=== PATIENT | female | born 1990 | race Caucasian/White ===

== ENCOUNTER 2023-04-20 13:31 | Inpatient (IN) | payer BC ==
[2023-04-20] MEDS ORDERED: TERBUTALINE 1 MG/ML VIAL SQ PRN (15:29)
[2023-04-20] MEDS ORDERED: TRANEXAMIC ACID IN NACL,ISO-OS 1,000 MG in EMPTY BAG 1 BAG IV PRN (15:29)
[2023-04-20] MEDS ORDERED: AMPICILLIN 2,000 MG in SODIUM CHLORIDE 0.9% 100 ML IVPB STA (15:29)
[2023-04-20] MEDS ORDERED: OXYTOCIN 10 UNIT/ML 1 ML VIAL IM PRN (15:29)
[2023-04-20] MEDS ORDERED: miSOPROStoL 200 MCG TAB PO PRN (15:29)
[2023-04-20] MEDS ORDERED: LIDOCAINE 0.5% (PF) 5 MG/ML (50 ML SDV) SQ PRN (15:29)
[2023-04-20] MEDS ORDERED: METHYLERGONOVINE 0.2 MG/ML 1 ML AMP IM PRN (15:29)
[2023-04-20] MEDS ORDERED: CARBOPROST TROMETHAMINE 250 MCG/ML 1 ML AMP IM PRN (15:29)
[2023-04-20] MEDS ORDERED: OXYTOCIN 30 UNITS/500 ML NS 30 UNIT in SALINE 1 500ML.BAG IV SCH ×2 (15:30→20:30)
[2023-04-20 15:53] LABS: Basophils % (A) 0 %; Eosinophils % (A) 0 %; HGB 13.5 gm/dL (11.4-16.0); Lymphocytes # (A) 1.4 k/uL (1.0-4.8); Lymphocytes % (A) 19 %; MCH 30.3 pg (25.0-35.0); MCHC 33.8 g/dL (31.0-37.0); MCV 89.5 fL (80.0-100.0); Mean Platelet Volume 8.7; Monocytes # (A) 0.3 k/uL (0-1.0); Monocytes % (A) 4 %; Neutrophils # (A) 5.8 k/uL (1.3-7.7); Neutrophils % (A) 75 %; Platelet Count 165 k/uL (150-450); RBC 4.47 m/uL (3.80-5.40); RDW 14.7 % (11.5-15.5); WBC 7.7 k/uL (3.8-10.6)
[2023-04-20] MEDS: LACTATED RINGERS 1,000 ML IV SCH ×2 (15:53→17:08)
[2023-04-20] MEDS ORDERED: ROPIVACAINE 5 MG/ML 20 ML AMPULE ONE (16:46)
[2023-04-20] MEDS ORDERED: fentaNYL (PF) 50 MCG/ML 5 ML AMP ONE (16:46)
[2023-04-20] MEDS ORDERED: SODIUM CHLORIDE 0.9% 100 ML BAG ONE (16:46)
--- NOTE | 2023-04-20 18:32 | P.HPOB ---
History of Present Illness H&P Date: 04/20/23 Chief Complaint: Contractions This patient is a pleasant 32-year-old 3 para 2 female estimated date of confinement 04/23/2023 estimated gestational age 39-4/7 weeks who presented to labor and delivery this afternoon with complaints of contractions. Patient was 5-6 cm in the office on Thursday and was scheduled for induction tomorrow. Patient's cervix is about the same however she is having which she feels is painful contractions. I have given her the option of going home and return in the morning versus proceeding with induction/augmentation at this time. Since she lives in [place] she is requested to proceed with delivery. care is per Dr. Vieira and it appears to be uncomplicated. She has been watched for small for gestational age. She has a history of positive strep with a previous was negative this . Review of Systems Genitourinary: Reports Menstruation: Reports amenorrhea Past Medical History Past Medical History: No Reported History Additional Past Medical History / Comment(s): Patient's had 2 previous vaginal deliveries History of Any Multi-Drug Resistant Organisms: None Reported Past Surgical History: No Surgical Hx Reported Past Anesthesia/Blood Transfusion Reactions: No Reported Reaction Past Psychological History: No Psychological Hx Reported Smoking Status: Never smoker Past Alcohol Use History: None Reported Past Drug Use History: None Reported - Past Family History Father Family Medical History: No Reported History Medications and Allergies Home Medications Medication Instructions Recorded Confirmed Type No Known Home Medications 04/20/23 04/20/23 History Allergies Allergy/AdvReac Type Severity Reaction Status Date / Time No Known Allergies Allergy Verified 04/20/23 14:19 Exam Vital Signs Temp Pulse Resp BP Pulse Ox 04/20/23 18:13 97.0 F L 74 14 125/76 98 04/20/23 15:28 97.0 F L 74 16 125/76 Intake and Output 04/20/23 04/20/23 04/20/23 06:59 14:59 22:59 Other: Weight 83.461 kg 83.461 kg - OBG Physical Exam Abdomen: bowel sounds normal, no diffuse tenderness, no bruit present, no guar ding noted, no hepatomegaly, no splenomegaly, no mass Vulva: both: normal Vagina: normal moisture, no discharge Cervix: no lesion (Cervix 5 cm dilated 50% effaced -2 station), no discharge Uterus: enlarged Results labs show she is A positive, rubella immune, RPR nonreactive, hepatitis B is negative, Glucola was 131 with a normal three-hour gtt. Group B strep was negative ultrasounds have been normal with the exception of small for gestational age. Result Diagrams: 04/20/23 15:40 Assessment and Plan Assessment: This is a pleasant 32-year-old 3 para 2 female 39-4/7 weeks gestation who presents to labor and delivery with complaints of contractions. Patient's had no cervical change, however since she [place] a distance from the hospital she is quite anxious and I offered her the option of just being admitted for observation versus proceeding with delivery. Patient's requesting proceed with delivery at this time. Plan is artificial rupture membranes, augmentation of labor as necessary and prophylactic antibiotics due to history of positive strep with previous . Anticipate vaginal delivery. (1) 39 weeks gestation of Current Visit: Yes Status: Acute Code(s): Z3A.39 - 39 WEEKS GESTATION OF SNOMED Code(s): 77462601 (2) Normal labor Current Visit: Yes Status: Acute Code(s): O80 - ENCOUNTER FOR FULL-TERM UNCOMPLICATED DELIVERY; Z37.9 - OUTCOME OF DELIVERY, UNSPECIFIED SNOMED Code(s): 57638803
[2023-04-20] MEDS ORDERED: AMPICILLIN 1,000 MG in SODIUM CHLORIDE 0.9% 50 ML IVPB SCH (19:30)
[2023-04-20] MEDS ORDERED: diphenhydrAMINE 25 MG CAP PO PRN (20:24)
[2023-04-20] MEDS ORDERED: SIMETHICONE 80 MG CHEWABLE PO PRN (20:24)
[2023-04-20] MEDS ORDERED: ZOLPIDEM 5 MG TAB PO PRN (20:24)
[2023-04-20] MEDS ORDERED: LANOLIN CREAM 5 GM TUBE TOPICAL PRN (20:24)
[2023-04-20] MEDS ORDERED: ACETAMINOPHEN TAB 325 MG TAB PO PRN (20:24)
[2023-04-20] MEDS ORDERED: HYDROCORTISONE 2.5% RECTAL CREAM 30 GM TUBE RECTAL PRN (20:24)
[2023-04-20] MEDS ORDERED: diphenhydrAMINE 50 MG/ML 1 ML VIAL IVP PRN (20:24)
[2023-04-20] MEDS ORDERED: bisacodyL 10 MG SUPP RECTAL PRN (20:24)
[2023-04-20] MEDS ORDERED: BENZOCAINE/MENTHOL SPRAY 1 GM/SPRAY AEROSOL TOPICAL PRN (20:24)
--- NOTE | 2023-04-20 20:28 | P.PROBDLV ---
Vaginal Delivery Note - . Vaginal Delivery Note: Normal vaginal delivery viable male Apgars 9 and 9 delivery time is 2016 hrs. Please see dictated H&P for details of this patient's admission. In brief summary this is a pleasant 32-year-old 3 para 2 female 39-4/7 weeks gestation admitted to labor and delivery with complaints of regular painful contractions. Patient is 5-6 cm dilated she has artificial rupture membranes for clear fluid. Patient does request an epidural for pain control and was give n with good relief. She does have Pitocin augmentation of labor. Labor progresses. I did give her ampicillin due to history of positive strep with a previous . Patient gets to complete and with 1 push pushes the head over the intact perineum. Also nares are bulb suctioned. She is straight occiput anterior presentation. There is no evidence of a nuchal cord. With no maternal effort the anterior shoulder spontaneously delivers followed by the rest of this 's body. This is a vigorous viable male infant Apgars are 9 and 9 delivery time was 2016 hrs. has spontaneous respirations and good cry. Due to history of jaundice with her first baby the umbilical cord was immediately doubly clamped and cut. is laid on the mother's abdomen. The placenta spontaneously delivered intact. Estimated blood loss is less than 100 mL. There are no lacerations and no repairs required. and mother are stable in delivery room. All counts are correct 3. There are no complications.
[2023-04-21] MEDS: IBUPROFEN 600 MG TAB PO PRN ×2 (05:35→20:17)
--- NOTE | 2023-04-21 07:24 | P.MSEPDOC ---
Presenting Problems - Arrival Data Date of Arrival on Unit: 04/20/23 Time of Arrival on Unit: 13:30 Mode of Transport: Ambulatory - Complaint OB-Reason for Admission/Chief Complaint: Possible Onset of Labor Medical History - Information : 3 Para: 2 Term: 2 : 0 Abortions: Spontaneous or Elective: 0 Number of Living Children: 2 - Gestational Age Gestational Age by DANNY (wks/days): 39 Weeks and 4 Days Review of Systems - Review of Systems Constitutional: No problems Breast: No problems ENT: No problems Cardiovascular: No problems Respiratory: No problems Gastrointestinal: No problems Genitourinary: No problems Musculoskeletal: No problems Neurological: No problems Skin: No problems Vital Signs - Temperature Temperature: 98.4 F Temperature Source: Oral - Pulse Right Brachial Pulse Rate: 74 Pulse Assessment Method: Automatic Cuff - Respirations Respiratory Rate: 16 Oxygen Delivery Method: Room Air O2 Sat by Pulse Oximetry: 99 - Blood Pressure Right Arm Blood Pressure: 116/75 Blood Pressure Mean: 88 Blood Pressure Source: Automatic Cuff Medical Screen Scoring - Cervical Exam Dilation (cm): 5 Effacement (%): 60 Station: -2 Membranes: Intact - Uterine Contractions Frequency From (mins): 5 Frequency To (mins): 10 Duration From (seconds): 30 Duration To (seconds): 50 Intensity: Moderate Resting: Soft to palpation - Assessment - Baby A Baseline FHR: 125 Heart Rate - NICHD Category: Category I (Normal) NST: Reactive Physician Notification - Physician Notified Physician Notified Date: 04/20/23 Physician Notified Time: 14:30 Physician: Dr. Zafar New Order Received: Yes Maternal Triage Index - Maternal Triage Index Presenting for scheduled procedure w/no complaint: No - Stat/Priority 1 Stat Priority 1: No - Urgent/Priority 2 Urgent Priority 2: No - Prompt/Priority 3 Prompt Priority 3: No - Non-Urgent/Priority 4 Non-Urgent Priority 4: Yes Criteria Met for Priority 4: labor 39 02/20 Disposition - Disposition OB Disposition: Admit I agree with the RN Medical Screening Exam: Yes Case reviewed; plan agreed upon as documented in EMR&OBIX.: Yes Diagnosis: ENCOUNTER FOR FULL-TERM UNCOMPLICATED DELIVERY
[2023-04-21] MEDS: SENNOSIDES-DOCUSATE SODIUM 1 EACH TAB PO SCH ×2 (08:11→20:17)
[2023-04-21 08:25] LABS: Basophils % (A) 0 %; Eosinophils # (A) 0.1 k/uL (0-0.7); Eosinophils % (A) 1 %; HCT 33.5 % (34.0-46.0); HGB 11.9 gm/dL (11.4-16.0); Lymphocytes # (A) 1.3 k/uL (1.0-4.8); Lymphocytes % (A) 17 %; MCH 31.3 pg (25.0-35.0); MCHC 35.4 g/dL (31.0-37.0); MCV 88.4 fL (80.0-100.0); Mean Platelet Volume 8.7; Monocytes # (A) 0.4 k/uL (0-1.0); Monocytes % (A) 6 %; Neutrophils # (A) 5.4 k/uL (1.3-7.7); Neutrophils % (A) 74 %; Platelet Count 128 k/uL (150-450); RBC 3.79 m/uL (3.80-5.40); RDW 14.9 % (11.5-15.5); WBC 7.3 k/uL (3.8-10.6)
--- NOTE | 2023-04-21 08:55 | P.PNOBGVD ---
Subjective - Subjective Principal diagnosis: Status post vaginal delivery day #1 Interval history: Patient is doing well. She is breast-feeding. Lochia is decreasing. Her pain is fairly well controlled at this time. Patient reports: Reports appetite normal, Reports voiding normally, Reports pain well controlled, Reports ambulating normally [place]: doing well, nursing well Objective - Latest Vital Signs Latest vital signs: Vital Signs Temp Pulse Resp BP Pulse Ox 04/21/23 08:00 98.1 F 82 16 124/78 04/21/23 07:24 98.4 F 74 16 116/75 99 04/21/23 04:00 98.4 F 74 16 116/75 99 04/21/23 00:00 97.9 F 83 16 125/66 04/20/23 22:25 83 16 117/62 04/20/23 21:55 79 16 122/77 04/20/23 21:25 91 16 123/70 04/20/23 21:10 71 16 111/57 04/20/23 20:55 82 16 123/65 04/20/23 20:40 85 16 112/68 04/20/23 20:25 97.4 F L 100 16 122/72 04/20/23 18:13 97.0 F L 74 14 125/76 98 04/20/23 15:28 97.0 F L 74 16 125/76 Intake and Output 04/20/23 04/21/23 04/21/23 22:59 06:59 14:59 Output Total 295 Balance -295 Output: Estimated Blood Loss 295 Other: # Voids 1 Weight 83.461 kg - Exam Extremities: Present: normal. Absent: tenderness, edema Abdomen: Present: normal appearance, soft. Absent: distention, tenderness Uterus: Present: normal, firm. Absent: tenderness - Labs Labs: Abnormal Lab Results - Last 24 Hours (Table) 04/21/23 Range/Units 08:04 RBC 3.79 L (3.80-5.40) m/uL Hct 33.5 L (34.0-46.0) % Plt Count 128 L (150-450) k/uL Assessment and Plan Assessment: Status post vaginal delivery day #1 Plan: Continue with care today. Anticipate discharge home tomorrow.
[2023-04-22] MEDS: IBUPROFEN 600 MG TAB PO PRN (08:07)
[2023-04-22] MEDS: SENNOSIDES-DOCUSATE SODIUM 1 EACH TAB PO SCH (08:08)
[2023-04-22 08:15] VITALS: BP 130/83; PULSE 86; RESP 16; TEMP 98
--- NOTE | 2023-04-22 08:22 | P.DS ---
Providers Date of admission: 04/20/23 15:24 Expected date of discharge: 04/22/23 Attending physician: Rhys Feliciano Primary care physician: Stated None Hospital Course: This is a 32-year-old female 3 para 2 at 39-4/7 weeks who presented with complaints of regular strong contractions. She underwent oxytocin augmentation of labor and artificial rupture membranes and delivered vaginally a viable male infant on 04/20/2023 with scores of 9 at 1 minute and 9 at 5 minutes and weight of 6 lbs. 9 oz. Her course has been uncomplicated. Lochia has been decreasing. Her pain is fairly well controlled. She is breast- feeding. Vital signs are stable. Abdomen is soft with fundus firm and nontender. Extremities show negative Homans. Impression is status post vaginal delivery day #2. Plan is to discharge home today. Routine instructions are given. She will be given a prescription for ibuprofen and a breast pump. She is advised to call the office if she has any further questions or concerns prior to her appointment time. She is advised to follow up in the office in 6 weeks. Procedures: Oxytocin augmentation of labor Spontaneous vaginal delivery of a viable male infant on 04/20/2023 Patient Condition at Discharge: Stable Plan - Discharge Summary New Discharge Prescriptions: New Ibuprofen [Motrin] 600 mg PO Q6HR PRN #60 tab PRN Reason: Mild Pain (Scale 1 To 3) Discharge Medication List Ibuprofen [Motrin] 600 mg PO Q6HR PRN #60 tab 04/22/23 [Rx] Follow up Appointment(s)/Referral(s): Alessandra Vieira DO [Doctor of Osteopathic Medicine] - 06/02/23 3:30 pm Activity/Diet/Wound Care/Special Instructions: Instructions 1. Do not begin any exercise program for 3 weeks. 2. Do not resume sexual relations for 3 weeks or longer if uncomfortable. 3. You may take tub baths or showers at any time. 4. You may use tampons if desired after 3 weeks. 5. Keep the area of episiotomy (stitches) clean and dry. 6. If you are not nursing, wear a good fitting, supportive bra during the day and limit fluid intake for at least 1 week to prevent breast engorgement. 7. Call the office, [phone], within the next week to make appointment for your 6 week checkup if it has not already been made. 8. Report any of the following occurrences to the doctor promptly: a. Heavy, excessive bleeding b. Chills, fever c. Burning or frequency of urination d. Pain or redness and breasts if nursing e. Increasing pain or swelling in episiotomy (stitches). In addition to the above instructions, the following additional should be followed: 1. No heavy lifting or straining (exercising) until after 6 week checkup. 2. Keep abdominal incision clean and dry: You may wear a dressing if more comfortable. 3. Make office appointment for 10 days after going home or as instructed by her doctor. Discharge Disposition: HOME SELF-CARE
== END 2023-04-22 10:15 | disposition home or self-care (01) | DRG 807 ==
LOC: FBPOP 13:31 → 4FBP 15:24
PROVIDERS: ADMIT Obstetrics & Gynecology; ATTEND Obstetrics & Gynecology
PROC: 10E0XZZ Delivery of Products of Conception, External Approach (ICD-10-PCS; principal; 2023-04-20)
PROC: 3E033VJ Introduction of Other Hormone into Peripheral Vein, Percutaneous Approach (ICD-10-PCS; 2023-04-20)
PROC: 10907ZC Drainage of Amniotic Fluid, Therapeutic from Products of Conception, Via Natural or Artificial Opening (ICD-10-PCS; 2023-04-20)
DX: O80 Encounter for full-term uncomplicated delivery (principal); Z37.0 Single live birth; Z3A.39 39 weeks gestation of pregnancy
CPT/HCPCS: 59025; 85025; 86850; 86900; 86901; 99213

== ENCOUNTER → 2025-01-26 | Outpatient (CLI) | payer BC ==
--- NOTE | 2025-01-26 08:57 | MM ---
Reason for Exam: Screening (asymptomatic). Patient History: Menarche at age 15. First Full-Term at age 28. Premenopausal. Hormonal Contraceptives for 7 years from age 17 until age 24. Risk Values: Naima 5 year model risk: 0.3%. NCI Lifetime model risk: 10.4%. Tissue Density: The breasts are heterogeneously dense, which may obscure small masses. Findings: Analyzed By CAD. There is no suspicious group of microcalcifications or new suspicious mass in either breast. Overall Assessment: Negative, BI-RAD 1 Management: Screening Mammogram of both breasts in 1 year. . Patient should continue monthly self-breast exams. A clinical breast exam by your physician is recommended on an annual basis. This exam should not preclude additional follow-up of suspicious palpable abnormalities. Note on Naima scores and lifetime risk: 1. A Naima score greater than 3% is considered moderate risk. If this is the case, consider specialist referral to assess eligibility for a risk reducing agent. 2. If overall lifetime risk for the development of breast cancer is 20% or higher, the patient may qualify for future screening with alternating mammogram and breast MRI. [facility], , 01/26/2025 8:54 AM. Electronically signed and approved by: Kristian Piper M.D. [facility]
== END | disposition home or self-care (01) ==
LOC: RADMAMWWP 08:13
PROVIDERS: ATTEND Family Medicine
DX: Z12.31 Encounter for screening mammogram for malignant neoplasm of breast (principal); R92.333 Mammographic heterogeneous density, bilateral breasts; Z92.0 Personal history of contraception
CPT/HCPCS: 77067